=== PATIENT | female | born 1985 | race Caucasian/White ===

== ENCOUNTER 2019-04-16 23:18 | Emergency (ER) | payer MEDICAID ==
[2019-04-17] MEDS ORDERED: KETOROLAC TROMETHAMINE 60 MG/2 ML SDV IM ONE (02:23)
[2019-04-17] MEDS ORDERED: PENICILLIN V POTASSIUM 500 MG TABLET PO ONE (02:24)
--- NOTE | 2019-04-17 02:31 | ER Document Report ---
HPI - HPI Time Seen by Provider: 04/17/19 02:14 Pain Level: 5 Context: Patient is a 33-year-old female that comes to the emergency department for chief complaint of dental pain, pain is in the right upper jaw, she has known poor dentition with widespread breakdown. She denies fever chills, drainage from the area, sore throat, neck pain. She denies any other complaints. She denies . - REPRODUCTIVE Reproductive: DENIES: : Past Medical History - General Information source: Patient - Social History Smoking Status: Never Smoker Frequency of alcohol use: None Drug Abuse: None Lives with: Family Family History: Reviewed & Not Pertinent - Past Medical History Cardiac Medical History: Reports: Hx Hypercholesterolemia Renal/ Medical History: Reports: Hx Ectopic Skin Medical History: Reports Hx Cellulitis, Reports Hx Eczema, Reports Hx Psoriasis Psychiatric Medical History: Reports: Hx Anxiety, Hx Attention Deficit Hyperactivity Disorder, Hx Depression Past Surgical History: Reports: Hx Section, Hx Gynecologic Surgery - Immunizations Immunizations up to date: Yes Hx Diphtheria, Pertussis, Tetanus Vaccination: Yes Vertical Provider Document - CONSTITUTIONAL General Appearance: WD/WN, No Apparent Distress - INFECTION CONTROL TRAVEL OUTSIDE OF THE [place] IN LAST 30 DAYS: No - HEENT HEENT: Atraumatic, Normocephalic, PERRLA. negative: Conjuctival Injection, Pharyngeal Exudate, Pharyngeal Tenderness, Pharyngeal Erythema, Tympanic M embrane Red, Tympanic Membrane Bulging Mouth Diagram: 1 - In this location there is no erythema of the gumline with tenderness, dental caries. Widespread dental decay noted. No abscess noted. Normal oropharyngeal exam otherwise. - NECK Neck: Normal Inspection - RESPIRATORY Respiratory: Breath Sounds Normal, No Respiratory Distress - CARDIOVASCULAR Cardiovascular: Regular Rate, Regular Rhythm - GI/ABDOMEN Gastrointestinal: Abdomen Soft, Abdomen Non-Tender - BACK Back: Normal Inspection - MUSCULOSKELETAL/EXTREMETIES Musculoskeletal/Extremeties: MAEW, FROM, Non-Tender - NEURO Level of Consciousness: Awake, Alert, Appropriate Motor/Sensory: No Motor Deficit, No Sensory Deficit - DERM Integumentary: Warm, Dry, No Rash Course - Re-evaluation Re-evalutation: Evaluation is consistent with dental infection without abscess. No other concerning findings noted. Patient reports allergy to Keflex, I did discuss the use of penicillin versus clindamycin, she chose to use penicillin. Given dose here. Discussed dental follow-up, discussed return precautions. Patient states understanding. - Vital Signs Vital signs: Temp Pulse Resp BP Pulse Ox 98.2 F 89 18 131/86 H 99 04/16/19 23:45 04/16/19 23:45 04/16/19 23:45 04/16/19 23:45 04/16/19 23:45 Discharge - Discharge Clinical Impression: Pain, dental Condition: Stable Disposition: HOME, SELF-CARE Additional Instructions: Your evaluation is consistent with a dental infection. Take antibiotics as prescribed to completion. Follow-up with the dental referral for additional evaluation and management. Return if you worsen including increased swelling of the face. [facility] [address] [place] [address], [id number] [id number] Prescriptions: Ibuprofen [Ibu] 800 mg PO TID PRN #30 tablet PRN Reason: Penicillin V Potassium [Penicillin Vk 500 mg Tablet] 500 mg PO BID #20 tablet
[2019-04-17 02:53] VITALS: BP 137/81
== END 2019-04-17 02:53 | disposition home or self-care (01) ==
LOC: ER 23:18
DX: K08.9 Disorder of teeth and supporting structures, unspecified (principal); E78.00 Pure hypercholesterolemia, unspecified
CPT/HCPCS: 99282; 96372; J1885; J3490